=== PATIENT | female | born 1995 | race Two or more races ===

== ENCOUNTER 2020-01-09 16:49 | Emergency (ER) | payer SELFPAY ==
[~2020-01-09] VITALS: Ht 172.7 cm; Wt 68.0 kg
[2020-01-09 18:32] LABS: CLARITY URINE CLEAR (CLEAR); COLOR URINE YELLOW (YELLOW); KETONES URINE 1+ (NEGATIVE); LEUKOCYTE ESTERASE URINE 1+ (NEGATIVE); NITRITE URINE NEGATIVE (NEGATIVE); OCCULT BLOOD URINE NEGATIVE (NEGATIVE); PROTEIN URINE TRACE (NEGATIVE); SPECIFIC GRAVITY URINE 1.026 (1.005-1.030)
[2020-01-09 20:09] VITALS: BP 115/69
== END 2020-01-09 20:10 | disposition home or self-care (01) ==
LOC: ER 16:49
DX: N39.0 Urinary tract infection, site not specified (principal); R05 Cough
CPT/HCPCS: 71045; 81003; 81025; 99284